=== PATIENT | male | born 1995 | race Caucasian/White ===

== ENCOUNTER 2022-11-19 04:18 | Emergency (ER) | payer MEDICAID ==
[2022-11-19] MEDS ORDERED: Ibuprofen 600 MG Tab PO ONE (04:40)
[2022-11-19] MEDS ORDERED: Dexamethasone 10 MG/ML SDV PO ONE (04:40)
[2022-11-19] MEDS ORDERED: Acetaminophen 500 MG Tab PO ONE (04:40)
== END 2022-11-19 05:19 | disposition home or self-care (01) ==
LOC: MW.ED 04:18
DX: J03.90 Acute tonsillitis, unspecified (principal); Z72.0 Tobacco use
CPT/HCPCS: 87651; 99283; A9270; J8540